=== PATIENT | male | born 1980 | race African-American/Black ===

== ENCOUNTER → 2019-09-14 16:44 | Outpatient (CLI) | payer BC, SELFPAY ==
[2016-02-27 11:00] VITALS: BMI 38.8
[2019-09-14 17:56] LABS: Absolute Neutrophil Count 1.9 X10^3/uL (2.0-7.7); Basophil# 0.01 X10^3/uL; Basophil% 0.2 % (0-1); Eosinophil# 0.05 X10^3/uL; Eosinophils% 0.9 % (0-5); Hematocrit 46.7 % (40-54); Lymphocyte % 55.5 % (19-41); Mean Corp Hgb Conc 32.1 g/dL (32-36); Mean Corpuscular Hgb 25.9 pg (27.0-32.0); Mean Corpuscular Volume 80.5 fL (80-94); Mean Platelet Vol. 10.2 fl (6.2-12.0); Monocyte# 0.42 X10^3/uL; Monocyte% 7.8 % (0-10); NRBC Flagged by Analyzer 0 % (0-5); Neutrophil # 1.92 X10^3/uL (2.7-7.7); Neutrophil % 35.4 % (47-70); Platelet Count 231 K/mm3 (150-450); RBC Distribution Width CV 13.6 % (11.6-14.6); RBC Distribution Width SD 39.7 fl (35.1-43.9); White Blood Count 5.4 K/mm3 (4.4-11.0)
[2019-09-14 18:56] LABS: AST(SGOT) 49 U/L (15-37); Alanine Aminotransfer ALT/SGPT 87 U/L (16-61); Albumin, Serum 3.9 g/dL (3.2-5.0); Alkaline Phosphatase 79 U/L (45-117); Anion Gap 4 (5-15); BUN 17 mg/dL (7-18); BUN/Creat Ratio 10.1 RATIO (10-20); Bilirubin, Direct 0.06 mg/dL (0.00-0.30); Calcium,Total 9.1 mg/dL (8.5-10.1); Chloride 107 mmol/L (98-107); Creatinine, Serum 1.68 mg/dL (0.70-1.30); EST Glomerular Filtration Rate 49 mL/min (>60); Est Glom Filt Rate - Afr Amer 59 mL/min (>60); Globulin 4.3 g/dL (2.2-4.2); Glucose 79 mg/dL (74-106); Protein, Total 8.2 g/dL (6.4-8.2); Sodium Level 140 mmol/L (136-145); T4 Free Direct 0.84 ng/dL (0.76-1.46); Thyroid Stim Hormone (TSH) 1.94 uIU/mL (0.358-3.74)
== END ==
PROVIDERS: PCP Family Medicine; Referring Provider Dermatology; Visit Provider Dermatology
DX: L29.8 Other pruritus (principal); L85.3 Xerosis cutis; L20.89 Other atopic dermatitis
CPT/HCPCS: 36415; 80048; 80076; 84439; 84443; 85025

== ENCOUNTER 2022-06-04 00:05 | Emergency (ER) | payer BC, SELFPAY ==
[2022-06-04 00:06] VITALS: BP 154/129; PULSE 99; RESP 16; TEMP 36.6; O2SAT 98; BMI 42.4
--- NOTE | 2022-06-04 00:36 | EDS_ITS ---
HPI History of Present Illness Chief Complaint: Back Detail of Chief Complaint: Back pain Informant: patient Narrative Narrative: Patient presents the emergency department complaint of back pain that started this morning. Patient states he was in the shower and bent over to last picker a loofah and developed severe pain. Patient was seen at [facility] where he was given Dilaudid and Valium and discharged with a prescription for [place]. They did not give him a prescription for a muscle relaxer and he thinks that is the main problem. Patient went back a second time and did not feel like he was treated well by the nurse and the physician there so he left the department. Presents now with ongoing pain in his back. Patient denies radiation of the pain down his legs. He denies loss of bowel or bladder function. Denies weakne ss in extremities. Patient has an appointment to see his primary care physician in 2 days and back specialist in 5 days. Patient just wants a muscle relaxer to get him to his appointments. He really does not want anything more for pain and states he did not even fill his prescription for the [place]. PFSH PFSH Home Medications diazepam 5 mg tablet (Valium) 5 mg PO TID PRN muscle spasm #14 tabs 06/04/22 [Rx Last Taken Unknown] Allergy/AdvReac Type Severity Reaction Status Date / Time No Known Allergies Allergy Verified 07/04/14 01:31 Social History Smoking Status: Former smoker ROS ROS ED Review of Systems ROS Unobtainable: other Constitutional Constitutional ED: Reports lethargy; Denies chills, fever(s), sweats or weight loss Eyes Eyes: Denies blurry vision, change in vision or diplopia ENT ENT ED: Denies rhinorrhea or sore throat Cardiovascular Cardiovascular: Denies chest pain, orthopnea or racing heartbeat Respiratory/Chest Respiratory/Chest: Denies cough, dyspnea, dyspnea on exertion, orthopnea or sputum Gastrointestinal Gastrointestinal: Denies abdominal pain, diarrhea, nausea or vomiting Genitourinary Genitourinary ED: Denies dysuria, hematuria or urinary frequency Musculoskeletal Musculoskeletal: Reports back pain; Denies arthralgias, myalgias or neck pain Integumentary Denies abscess, Abrasions or rash Neurologic Neurologic: Denies headache(s) or weakness Psychiatric Psychiatric: Denies anxiety, depression or suicidal thoughts Endocrine Endocrinology: Denies polydipsia, polyphagia or polyuria Hematologic/Lymphatic Hematologic/Lymphatic: Denies easy bleeding, easy bruising or lymphadenopathy Allergic/Immunologic Allergic/Immunologic ED: Denies mouth swelling, tongue swelling or urticaria EXAM Physical Exam Const Vital Signs: 06/04/22 00:06 Temperature 97.8 F Temperature Source Temporal Pulse Rate 99 Respiratory Rate 16 Blood Pressure 154/129 H Blood Pressure Mean 137 Pulse Ox 98 Oxygen Delivery Method Room Air Positive well nourished and well developed General Appearance ED: well developed and NAD HEENT Reports TM's clear and moist mucous membranes normocephalic and atraumatic; Negative for trauma or tenderness Tympanic Membrane ED: Yes TM's clear Eyes PERRL and EOMs intact bilaterally General Eye ED: Negative for pale conjunctiva or scleral icterus Neck no lymphadenopathy, supple and no JVD General: Negative for tenderness Chest Wall inspection of chest normal and palpation of chest normal Chest: Negative for tenderness Resp normal respiratory effort and clear to auscultation bilaterally Effort and Inspection: Negative for respiratory distress or pain with movement Auscultation: Negative for rhonchi, wheezes or diminished lung sounds Cardio regular rate, regular rhythm, S1 normal heart sound, S2 normal heart sound and no murmurs Peripheral Pulses: pulses 2+ throughout GI normal to inspection, nondistended, normoactive bowel sounds, soft to palpation, non-tender, non-distended and no masses Back/Spine no CVA tenderness Back/Spine Narrative: Patient has no tenderness over thoracic or lumbar spine. He does have some tenderness over the right lower lumbar paraspinal musculature into the right buttock. Patient does have pain with straight leg raising on the right Safia supine at about 20 degrees. He has normal L5 extension bilaterally. Normal deep tendon reflexes the patella and Achilles. Normal sensation to touch. Extremity normal to inspection General Extremety ED: Negative for edema General Extremity: Negative for edema Neuro oriented x3, CN's II-XII intact bilaterally, no sensory deficits noted and gait normal Sensorium / Orientation: awake, alert, oriented to person, oriented to place and oriented to time Motor Exam: strength 5/5 throughout and strength abnormal Psych mental status grossly normal Skin no rashes or lesions noted and no wounds MDM MDM MDM Narrative Medical decision making narrative: Patient was given Valium 4 mg p.o. He will be given a prescription for Valium. He is advised to use ibuprofen as an anti-inflammatory. Patient already has a TENS unit that he is been using. Patient to keep his appointments with primary care physician. At this point I do not feel any imaging is indicated as there is been no trauma. Patient in agreement. He has no signs or symptoms of cauda equina. Discharge Plan Triage Chief Complaint: Back ED Provider: Tyshawn Che Dx/Rx/DC Orders Clinical Impression: Lumbar strain Instructions: ED Back Sprain/Strain Prescriptions: New diazepam [Valium] 5 mg tablet 5 mg PO TID PRN (Reason: muscle spasm) Qty: 14 0RF Primary Care Provider: Rubén Carvalho Referrals: Rubén Carvalho MD [Primary Care Provider] - 2 Days Disposition Disposition: Home, Self Care
[2022-06-04] MEDS: diazePAM 2 MG Tablet 4 MG PO (01:01)
[2022-06-04 01:03] VITALS: PULSE 77; RESP 15; O2SAT 99
== END 2022-06-04 01:16 | disposition home or self-care (01) ==
LOC: ED 00:56
PROVIDERS: Emergency Provider Emergency Medicine; PCP Family Medicine; Visit Provider Emergency Medicine
DX: S39.012A Strain of muscle, fascia and tendon of lower back, initial encounter (principal); Z87.891 Personal history of nicotine dependence; X50.1XXA Overexertion from prolonged static or awkward postures, initial encounter
CPT/HCPCS: 99283